=== PATIENT | male | born 1970 | race Caucasian/White ===

== ENCOUNTER 2017-01-24 21:18 | Emergency (ER) | payer OTHER ==
[~2017-01-24] VITALS: Ht 175.3 cm; Wt 99.8 kg
[2017-01-24 21:55] VITALS: BP 165/98
[2017-01-24 22:13] LABS: ABSOLUTE BASOPHIL COUNT 0 /CUMM (0.0-0.2); ABSOLUTE EOSINOPHIL COUNT 0.3 /CUMM (0.0-0.7); ABSOLUTE GRANULOCYTE CT 2.9 /CUMM (1.4-6.5); ABSOLUTE LYMPH COUNT 1.6 /CUMM (1.2-3.4); ABSOLUTE MONOCYTE COUNT 0.8 /CUMM (0.10-0.60); BASOPHIL % 0.6 % (0.0-2.0); EOSINOPHIL % 4.7 % (0-5); GRANULOCYTE % 51.7 % (42.2-75.2); HEMATOCRIT 46.2 % (42-52); MEAN CORPUSCULAR HGB 30.8 PG (27.0-31.0); MEAN CORPUSCULAR VOLUME 90.8 FL (80.0-94.0); MEAN PLATELET VOLUME 7.9 FL (7.4-10.4); PLATELET COUNT 259 /CUMM (130-400); RBC DISTRIBUTION WIDTH 12.5 % (11.5-14.5); RED BLOOD CELL CT 5.09 /CUMM (4.70-6.10); WHITE BLOOD CELL COUNT 5.7 /CUMM (4.8-10.8)
[2017-01-24] MEDS ORDERED: ATORVASTATIN CA20 M1 PO (23:29)
[2017-01-24] MEDS ORDERED: LISINOPRIL20 M1 PO (23:29)
--- NOTE | 2017-01-24 23:39 | ED CARDIAC/CP/PALPITATIONS ---
History of Present Illness General Chief Complaint: General Adult Stated Complaint: HIGH BP 158/94 AT HOME Source: patient Exam Limitations: no limitations Allergies Coded Allergies: NO KNOWN ALLERGIES (08/13/14) Reconcile Medications Atorvastatin Calcium 20 MG TABLET 1 TAB PO DAILY CHOL (Reported) Lisinopril 20 MG TABLET 1 TAB PO DAILY BP (Reported) Triage Note: PT TO ED C/O HIGH BP AT HOME, WAS 158/94. BP IN TRIAGE 165/98. TAKES 20 MG LISINOPRIL, TAKES DIRECTED. STATES USUALLY CHECKS BP AT HOME EVERY FEW DAYS. ATE A COUPLE OF [employer] (HOME M[employer]) FOR DINNER. DENIES DIZZINESS, NO HEADACHE STATES LEFT ARM FELT HEAVY EARLIER. "I CAME BECAUSE I WANTED TO MAKE SURE I WASN'T HAVING A HEART ATTACK" DENIES CHEST PAIN ATT HIS TIME Triage Nurses Notes Reviewed? yes HPI: This patient is a 46 year old male with a history of hypertension who presented for evaluation of high blood pressure. He reported that he woke up from a nap on the couch and, "I felt funny. Gianna off, I don't know how to described it." He reported a less than one minute episode of numbness in his left arm. He denied any chest pain, palpitations, difficulty breathing, visual changes, headaches, jaw pain, arm pain, abdominal pain, nausea, vomiting, or any other associated symptoms. He takes Lisinopril at home. BP at home was 158/94mmHg. (JOE MENENDEZ PA-C) Vital Signs & Intake/Output Vital Signs & Intake/Output Vital Signs Date Time Temp Pulse Resp B/P B/P Pulse O2 O2 Flow FiO2 Mean Ox Delivery Rate 01/24 2155 98.8 107 20 165/98 97 Room Air ED Intake and Output 01/25 0000 01/24 1200 Intake Total 0 Output Total Balance 0 Intake, Oral 0 Patient 220 lb Weight Past History Travel History Traveled to [place] past 21 day No Medical History Any Pertinent Medical History? see below for history Cardiovascular: hypertension, hyperlipidemia Surgical History Surgical History: non-contributory Psychosocial History What is your primary language Malay Tobacco Use: Never used ETOH Use: denies use Illicit Drug Use: denies illicit drug use Family History Hx Contributory? No (JOE MENENDEZ PA-C) Review of Systems Review of Systems Constitutional: Reports: no symptoms. EENTM: Reports: no symptoms. Respiratory: Reports: no symptoms. Cardiovascular: Reports: no symptoms. GI: Reports: no symptoms. Genitourinary: Reports: no symptoms. Musculoskeletal: Reports: no symptoms. Skin: Reports: no symptoms. Neurological/Psychological: Reports: see HPI. All Other Systems: Reviewed and Negative (JOE MENENDEZ PA-C) Physical Exam Physical Exam Cardiovascular: regular rate/rhythm, normal peripheral pulses, no murmurs, rubs, or gallops. No JVD or carotid bruits Comments: General: Well-developed, well-nourished person in no acute distress HEENT: Head normocephalic/atraumatic, moist mucous membranes Neck: Supple, no lymphadenopathy Back: Normal gait Respiratory: No repsiratory distress. Speaking in full sentences. Lungs CTA bilaterally with no W/R/R Extremities: Normal and equal pulses. Capillary refill less than 2 seconds Neuro: A&Ox3. Cranial nerves grossly intact. No focal neurologic deficits Skin: Warm and dry Psych: Normal mood and affect Core Measures ACS in differential dx? Yes Severe Sepsis Present: No Septic Shock Present: No (JOE MENENDEZ PA-C) Progress Differential Diagnosis: AMI, aortic dissection, atrial fibrillation, cholecystitis, CHF/pulm edema, costochondritis, hyperkalemia, hyperthyroid, hyperventilation, musculoskeletal pain, myocarditis, pancreatitis, pericarditis, pneumothorax, PSVT, pulmonary embolism, PUD/GERD, PVCs/PACs, unstable angina Initial ED EKG: normal axis, normal intervals, no ST T wave changes, sinus tachycardia, 102 bpm (JOE MENENDEZ PA-C) Plan of Care: Orders Procedure Date/time Status TROPONIN LEVEL 01/24 2157 Complete COMPREHENSIVE METABOLIC PANEL 01/24 2157 Complete CBC WITHOUT DIFFERENTIAL 01/24 2157 Complete EKG 01/24 2157 Active Laboratory Tests 01/24/17 2206: Anion Gap 10, Estimated GFR > 60, BUN/Creatinine Ratio 20.0, Glucose 133 H, Calcium 9.1, Total Bilirubin 0.4, AST 25, ALT 52, Alkaline Phosphatase 51, Troponin I < 0.01, Total Protein 7.0, Albumin 4.0, Globulin 3.0, Albumin/ Globulin Ratio 1.3, CBC w Diff NO MAN DIFF REQ, RBC 5.09, MCV 90.8, MCH 30.8, RDW 12.5, MPV 7.9, Gran % 51.7, Lymphocytes % 28.8, Monocytes % 14.2 H, Eosinophils % 4.7, Basophils % 0.6, Absolute Granulocytes 2.9, Absolute Lymphocytes 1.6, Absolute Monocytes 0.8 H, Absolute Eosinophils 0.3, Absolute Basophils 0, PUBS MCHC 34.0 Departure Departure Disposition: HOME OR SELF CARE Condition: Stable Clinical Impression Primary Impression: Hypertension Qualifiers: Hypertension type: unspecified secondary hypertension Qualified Code: I15.9 - Secondary hypertension, unspecified Referrals: LOUIS NG MD (PCP/Family) Additional Instructions: please follow-up with your primary care phsyician for further evaluation. return for any worsening symptoms or conerns. Departure Forms: Customer Survey General Discharge Information (JOE MENENDEZ PA-C) PA/HOTEL SUPERINTENDENT Co-Sign Statement Statement: ED Attending supervision documentation- I saw and evaluated the patient. I have also reviewed all the pertinent lab results and diagnostic results. I agree with the findings and the plan of care as documented in the PA's/HOTEL SUPERINTENDENT's documentation. x I have reviewed the ED Record and agree with the PA's/HOTEL SUPERINTENDENT's documentation. [] Additions or exceptions (if any) to the PAs/HOTEL SUPERINTENDENT's note and plan are summarized below: [] (BETHEL KING,JULIÁN) Critical Care Note Critical Care Note Critical Care Time: non-applicable (JOE MENENDEZ PA-C)
== END 2017-01-24 23:53 ==
LOC: ERH 21:18
PROVIDERS: Emergency Medicine
DX: I10 Essential (primary) hypertension (principal)
CPT/HCPCS: 93005; 93010